=== PATIENT | female | born 1990 | race Caucasian/White ===

== ENCOUNTER 2017-07-24 00:35 | Emergency (ER) | payer SELFPAY ==
[2017-07-24] MEDS ORDERED: ONDANSETRON PF 4 MG/2 ML VIAL. IV ×2 (01:00)
[2017-07-24] MEDS ORDERED: IV NORMAL SALINE 1000ML BAG 1,000 ML IV ×2 (01:00)
[2017-07-24] MEDS ORDERED: fentaNYL PF VIAL 100 MCG/2 ML VIAL IV ×2 (01:30)
== END 2017-07-24 00:50 | disposition left against medical advice (07) ==
LOC: ER 00:35
DX: R10.84 Generalized abdominal pain (principal)
CPT/HCPCS: 99281